=== PATIENT | female | born 1995 | race Caucasian/White ===

== ENCOUNTER 2017-02-01 19:29 | Emergency (ER) | payer MEDICAID ==
[~2017-02-01] VITALS: Ht 152.4 cm; Wt 49.9 kg
[2017-02-01 20:59] LABS: CALCIUM 8.3 mg/dL (8.5-10.1); CARBON DIOXIDE 24.6 mmol/L (21-32); CHLORIDE SERUM 104 mmol/L (98-107); CREATININE SERUM 0.7 mg/dL (0.6-1.0); GFR1 > 60 mL/min; GLUCOSE SERUM 98 mg/dL (74-106); POTASSIUM SERUM 3.2 mmol/L (3.5-5.1); SODIUM SERUM 134 mmol/L (136-145)
[2017-02-01 21:11] LABS: ALBUMIN 3.4 g/dL (3.4-5.0); ALKALINE PHOSPHATASE 64 U/L (46-116); ALT/SGPT 15 U/L (14-59); AST/SGOT 19 U/L (15-37); BILIRUBIN TOTAL 0.84 mg/dL (0.20-1.00); PLATELET COUNT 264 x10^3mcL (130-400); RED CELL DISTRIBUTION WIDTH 13.2 % (11.5-14.5); TOTAL PROTEIN, SERUM 7.4 g/dL (6.4-8.2)
[2017-02-01 21:21] LABS: UA SPECIFIC GRAVITY 1.015 (1.005-1.035); microscopic required? YES; urine erythrocyte 2+ (NEGATIVE)
[2017-02-01 21:34] LABS: T3 TOTAL 1.05 ng/mL
[2017-02-01 22:29] LABS: MONOCYTE 10 % (0-7); SEGMENTED NEUTROPHILS 75 % (37-75); rbc morphology (normal/abnorm) ABNORMAL (NORMAL)
[2017-02-01 22:30] LABS: PLATELET MORPHOLOGY PLATELETS NORMAL
[2017-02-01 23:31] LABS: C REACTIVE PROTEIN 17.3 mg/dL (<=0.9)
[2017-02-01 23:41] LABS: FREE T4 0.97 ng/dL (0.76-1.46); FREE THYROXINE INDEX 2.9 ug/dL (1.4-4.5); T4(THYROXINE) 9.9 ug/dL (4.7-13.3)
[2017-02-02 00:05] LABS: CK-MB < 0.5 ng/mL (0-3.6); CREATINE KINASE 82 U/L (26-192)
[2017-02-02 00:33] LABS: ERYTHROCYTE SED RATE 37 mm/hr (0-20)
[2017-02-02 01:05] VITALS: BP 106/71
== END 2017-02-02 01:05 | disposition home or self-care (01) ==
LOC: ED 19:29
PROVIDERS: Specialist
DX: M94.0 Chondrocostal junction syndrome [Tietze] (principal); N39.0 Urinary tract infection, site not specified
CPT/HCPCS: 83880; 84439; J0696; J1885; J7030; Q0092

== ENCOUNTER 2018-06-07 15:51 | Emergency (ER) | payer MEDICAID ==
[~2018-06-07] VITALS: Ht 152.4 cm; Wt 49.9 kg
[2018-06-07 15:54] VITALS: Ht 152.4 cm; Wt 49.9 kg
[2018-06-07 18:03] LABS: BASOPHIL % 0.4 % (0-2); PLATELET COUNT 318 x10^3mcL (130-400); RED CELL DISTRIBUTION WIDTH 13.2 % (11.5-14.5)
[2018-06-07 18:17] LABS: CALCIUM 9.1 mg/dL (8.5-10.1); CARBON DIOXIDE 24.6 mmol/L (21-32); CHLORIDE SERUM 104 mmol/L (98-107); CREATININE SERUM 0.6 mg/dL (0.6-1.0); GFR1 > 60 mL/min; GLUCOSE SERUM 83 mg/dL (74-106); SODIUM SERUM 138 mmol/L (136-145)
[2018-06-07 18:21] LABS: ALBUMIN 3.9 g/dL (3.4-5.0); ALKALINE PHOSPHATASE 68 U/L (46-116); ALT/SGPT 22 U/L (14-59); AMYLASE 51 U/L (25-115); AST/SGOT 26 U/L (15-37); BILIRUBIN TOTAL 0.96 mg/dL (0.20-1.00); LIPASE 120 IU/L (73-393); TOTAL PROTEIN, SERUM 7.9 g/dL (6.4-8.2)
[2018-06-07 18:31] LABS: UA SPECIFIC GRAVITY 1.015 (1.005-1.035); microscopic required? YES; urine erythrocyte TRACE (NEGATIVE)
[2018-06-07 18:36] LABS: AMPHETAMINE QUAL UR NONE DETECTED (See below)
[2018-06-07 20:22] VITALS: BP 109/68
== END 2018-06-07 20:22 | disposition home or self-care (01) ==
LOC: ED 15:51
PROVIDERS: Emergency Medicine
DX: N12 Tubulo-interstitial nephritis, not specified as acute or chronic (principal)
CPT/HCPCS: 36415; J1885; Q0162

== ENCOUNTER 2019-11-21 21:58 | Emergency (ER) | payer OTHER ==
[~2019-11-21] VITALS: Ht 152.4 cm; Wt 46.7 kg
[2019-11-21 22:32] VITALS: Ht 152.4 cm; Wt 46.7 kg
[2019-11-22 00:24] LABS: BASOPHIL % 0.4 % (0-2); RED CELL DISTRIBUTION WIDTH 11.9 % (11.5-14.5)
[2019-11-22 00:26] LABS: PLATELET COUNT 458 x10^3mcL (130-400)
[2019-11-22 00:33] LABS: CARBON DIOXIDE 28.1 mmol/L (21-32); CHLORIDE SERUM 103 mmol/L (98-107); CREATININE SERUM 0.8 mg/dL (0.6-1.0); GFR1 > 60 mL/min; GLUCOSE SERUM 90 mg/dL (74-106); SODIUM SERUM 137 mmol/L (136-145)
[2019-11-22 00:38] LABS: ALBUMIN 3.4 g/dL (3.4-5.0); ALKALINE PHOSPHATASE 71 U/L (46-116); ALT/SGPT 21 U/L (14-59); AST/SGOT 19 U/L (15-37); BILIRUBIN TOTAL 0.5 mg/dL (0.20-1.00); TOTAL PROTEIN, SERUM 8.4 g/dL (6.4-8.2)
[2019-11-22 02:51] VITALS: BP 123/77
== END 2019-11-22 02:51 | disposition home or self-care (01) ==
LOC: ED 21:58
PROVIDERS: Emergency Medicine
DX: N39.0 Urinary tract infection, site not specified (principal)
CPT/HCPCS: 36415; 83690; Q0092

== ENCOUNTER 2020-02-16 23:14 | Emergency (ER) | payer OTHER ==
[~2020-02-16] VITALS: Ht 152.4 cm; Wt 49.4 kg
[2020-02-16 23:22] VITALS: Ht 152.4 cm; Wt 49.4 kg
[2020-02-17 02:18] VITALS: BP 120/72
== END 2020-02-17 01:30 | disposition home or self-care (01) ==
LOC: ED 23:14
DX: M25.572 Pain in left ankle and joints of left foot (principal)
CPT/HCPCS: Q0092

== ENCOUNTER 2020-06-23 19:56 | Emergency (ER) | payer OTHER ==
[~2020-06-23] VITALS: Ht 154.9 cm; Wt 51.7 kg
[2020-06-23 20:32] VITALS: Ht 154.9 cm; Wt 51.7 kg
[2020-06-24 00:18] LABS: PLATELET COUNT 355 x10^3mcL (130-400); RED CELL DISTRIBUTION WIDTH 14.1 % (11.5-14.5)
[2020-06-24 00:29] LABS: CALCIUM 7.8 mg/dL (8.5-10.1); CARBON DIOXIDE 20.6 mmol/L (21-32); CHLORIDE SERUM 108 mmol/L (98-107); CREATININE SERUM 0.6 mg/dL (0.6-1.0); GFR1 > 60 mL/min; GLUCOSE SERUM 73 mg/dL (74-106); SODIUM SERUM 138 mmol/L (136-145)
[2020-06-24 00:33] LABS: BAND NEUTROPHIL 4 % (0-10); MONOCYTE 7 % (0-7); SEGMENTED NEUTROPHILS 79 % (37-75); rbc morphology (normal/abnorm) NORMAL (NORMAL)
[2020-06-24 00:36] LABS: ALKALINE PHOSPHATASE 84 U/L (46-116); ALT/SGPT 24 U/L (14-59); AMYLASE 47 U/L (25-115); AST/SGOT 21 U/L (15-37); BILIRUBIN TOTAL 0.3 mg/dL (0.20-1.00); LIPASE 84 IU/L (73-393); TOTAL PROTEIN, SERUM 6.7 g/dL (6.4-8.2)
[2020-06-24 00:37] LABS: ALBUMIN 2.4 g/dL (3.4-5.0)
[2020-06-24 00:58] VITALS: BP 117/66
== END 2020-06-24 01:00 | disposition home or self-care (01) ==
LOC: ED 19:56
PROVIDERS: Emergency Medicine
DX: O23.02 Infections of kidney in pregnancy, second trimester (principal); Z3A.20 20 weeks gestation of pregnancy
CPT/HCPCS: J0696; J2270; J2405; Q0092